=== PATIENT | male | born 1940 | race Caucasian/White ===

== ENCOUNTER 2016-09-17 11:21 | Day surgery (SDC) | payer MEDICARE, OTHER ==
[2016-09-12 10:24] LABS: HEMATOCRIT 42.3 % (40.0-51.0); HEMOGLOBIN 14.8 g/dL (13.6-17.8)
[2016-09-12 10:40] LABS: BUN (BLOOD UREA NITROGEN) 15 MG/DL (6-23); CALCIUM, SERUM 9.3 MG/DL (8.5-10.4); CHLORIDE, SERUM 110 MMOL/L (96-112); CO2 (CARBON DIOXIDE) 26 MMOL/L (24-34); CREATININE 0.99 MG/DL (0.70-1.30); GFR AFRICAN AMERICAN 87 ML/MIN (>=60); GFR NON AFRICAN AMERICAN 75 ML/MIN (>=60); GLUCOSE, SERUM 99 MG/DL (60-99); POTASSIUM, SERUM 4.3 MMOL/L (3.5-5.3); SODIUM, SERUM 143 MMOL/L (135-148)
[2016-09-12 11:24] LABS: ASCORBIC ACID (UR NOT ORDER) NEG (NEG); BILIRUBIN, URINE NEGATIVE (NEG); KETONE, URINE NEGATIVE (NEG); LEUKOCYTE ESTERASE(NOT OR NEG (NEG); WBC (NOT ORDERED) (RFLEX) < 1 (0-5)
--- NOTE | ~2016-09-17 | OP ---
Record Of Operation [facility] [address] [place]. [address] NAME: ALFONSO ROMERO : 42 STATUS : REG [facility]#: [id number] AGE: 75 ADM/REG DATE : 09/17/16 MR#: [id number] REPORT SERV DATE: 09/17/16 DICTATED BY: JAMEL OJEDA JR. DATE: 09/17/16 REPORT STATUS : Draft TRANSCRIBED BY: MODGloria DATE: 09/17/16 DATE OF PROCEDURE: 09/17/2016 SURGEON: Jamel Ojeda M.D. PREOPERATIVE DIAGNOSIS: Prostatic urethral polyps. POSTOPERATIVE DIAGNOSIS: Prostatic urethral polyps. PROCEDURE PERFORMED: Cystoscopy, resection of prostatic urethral polyps and/or TURBT 2 cm in size. COMPLICATIONS: None. CONSULTATIONS: None. ANESTHESIA: General with laryngeal mask airway. SPECIMENS: Prostatic urethral specimen. DRAINS: 22-Salvadorean 3-way Sweeney catheter. ESTIMATED BLOOD LOSS: None. INDICATION: Mr. Romero is a 75-year-old gentleman who comes today for resection of an area of his right lateral prostatic urethra on cystoscopy in the office. He appeared to have some papillary changes to the overlying mucosa of the right prostatic urethra. He has had a TURP in the past and this could simply be a regrowth of the prostate with some unusual remucosalization. PROCEDURE IN DETAIL: After the patient was identified and proper informed consent was obtained, he was taken to the operating room. General anesthesia was performed without complication using a laryngeal mask airway. He was then prepped and draped in a normal sterile fashion in the lithotomy position. Cystoscopic examination of the urethra and bladder were performed. Again the area on the right prostatic urethra was identified with some papillary changes. The rest of the prostatic urethra appeared to have good stable TUR defect. The bladder mucosa was examined. I did not note any evidence of papillary tumor, diverticula, or stone within the bladder. I then removed the cystoscope and replaced it with a 26-Salvadorean resectoscope. I then resected the right half of his prostatic urethra including the areas of papillary change. This tissue was then sent for specimen. The area was cauterized using electrocautery with the resectoscope. Once I was satisfied that all the chips had been removed and the hemostasis was good, I removed the resectoscope and replaced it with a 22-Salvadorean catheter with 30 mL of sterile water in the balloon. The patient was awakened in the operating room and transferred to the postanesthesia care in stable condition. He will be discharged home with the Sweeney that will be removed on and I will see him back in one week for pathology results. Record Of Operation [facility] [address] [place] [address] NAME: ALFONSO ROMERO : 42 STATUS : REG [facility] PAT#: [id number] AGE: 75 ADM/REG DATE : 09/17/16 MR#: [id number] REPORT SERV DATE: 09/17/16 DICTATED BY: JAMEL OJEDA JR. DATE: 09/17/16 REPORT STATUS : Draft TRANSCRIBED BY: SHAHEED DATE: 09/17/16 LEONID/SHAHEED Jamel Ojeda Jr., M.D. / [id number] CC: Joel Ruth Jr., M.D.
[~2016-09-17 11:21] MED LIST: CELEXA20 PO; LOTREL1 CA1 PO; LYRICA150 MG PO; ULTRAM50 PO
== END 2016-09-17 17:09 | disposition home or self-care (01) ==
LOC: SDC 11:21
PROVIDERS: Urology
PROC: 0VB08ZZ Excision of Prostate, Via Natural or Artificial Opening Endoscopic (ICD-10-PCS; principal; 2016-09-17 13:30)
DX: N40.0 Benign prostatic hyperplasia without lower urinary tract symptoms (principal); R31.9 Hematuria, unspecified; I10 Essential (primary) hypertension; I71.4 Abdominal aortic aneurysm, without rupture; Z98.1 Arthrodesis status; Z90.49 Acquired absence of other specified parts of digestive tract; Z97.4 Presence of external hearing-aid; H91.90 Unspecified hearing loss, unspecified ear; Z79.891 Long term (current) use of opiate analgesic; Z79.899 Other long term (current) drug therapy
CPT/HCPCS: 80048; 81001; 85014; 85018; 88305; 93005; J3010